=== PATIENT | female | born 1985 ===

== ENCOUNTER 2024-11-25 17:49 | Emergency (ER) | payer OTHER ==
[~2024-11-25] VITALS: Ht 154.9 cm; Wt 50.8 kg
[2024-11-25] MEDS ORDERED: KETOROLAC TROMETHAMINE 30 MG INJ ONE (21:55)
[2024-11-25] MEDS: KETOROLAC TROMETHAMINE 30 MG INJ IM ONE (21:55)
[2024-11-25 22:49] LABS: PLATELET COUNT (AUTO) 202 K/uL (179-408); RED BLOOD CELL COUNT(AUTO) 4.18 MIL/uL (3.63-4.92); RED CELL DISTRIBUTION WIDTH 12.9 % (12.3-17.7); WHITE BLOOD COUNT (AUTO) 6.6 K/uL (3.8-11.8)
[2024-11-25 22:56] LABS: CREATININE 0.7 mg/dL (0.6-1.3); SODIUM SERUM 136.0 mmol/L (136-145); UREA NITROGEN, BLOOD 17.0 mg/dL (7-18)
[2024-11-25 23:02] LABS: ASPARTATE AMINOTRANSFERASE 17.0 U/L (15-37); TOTAL PROTEIN, SERUM 7.1 g/dL (6.4-8.2)
[2024-11-26 01:30] VITALS: BP 110/64; TEMP 98; O2SAT 98
== END 2024-11-26 01:30 | disposition home or self-care (01) ==
LOC: ER 17:49
DX: M79.604 Pain in right leg (principal)
CPT/HCPCS: 36415; 73590; 84550; 85025; A4606; A4663; J1885